=== PATIENT | female | born 1955 | race Caucasian/White ===

== ENCOUNTER → 2017-10-19 | Outpatient (CLI) | payer BC ==
[~2017-10-19] MED LIST: ASPI-1471 PO; ATOR20TA22 PO; CALC500T6 PO; CYAN100017 PO; GARL1TAB9 PO; GLUC1TAB13 PO; GOLYTE PO; LACT1CAP6 PO; LACTAID3000 UNI1 PO; MAGN500C10 PO; MULT-1085 PO; OMEG500C7 PO; RANI-366 PO; UBID100C9 PO
--- NOTE | 2017-10-19 16:33 | RADIOLOGY IMAGING REPORT ---
FACILITY: [facility] - [place] PATIENT NAME: CONNER SWEENEY : [id number] MR: [id number] V: [id number] EXAM DATE: [id number] ORDERING PHYSICIAN: SUNIL APONTE TECHNOLOGIST: Magdalena Tolliver PROCEDURE:BILATERAL DIGITAL SCREENING MAMMOGRAM WITH CAD ASSISTED INTERPRETATION & 3D TOMOSYNTHESIS COMPARISON:Prior mammograms 10/15/16, 10/14/15, 08/28/14, 08/24/13, 08/25/12, 08/27/11. INDICATIONS:SCREENING FINDINGS: Moderately dense fibroglandular tissue is seen throughout the breasts. The parenchymal pattern has remained stable allowing for difference in mammographic technique & patient positioning. There is no evidence of malignant appearing mass, malignant appearing calcifications or other secondary sign of malignancy in either breast. DIAGNOSTIC CATEGORY 1--NEGATIVE. RECOMMENDATIONS: ROUTINE MAMMOGRAM AND CLINICAL EVALUATION. IMPRESSION: BIRADS 1: Negative. No significant abnormality is seen. Dictated by: Jennifer Ortiz M.D. on 10/19/2017 at 11:20 Transcribed by: REMY on 10/19/2017 at 11:33 Approved by: Jennifer Ortiz M.D. on 10/19/2017 at 16:32 [facility]
== END ==
LOC: MAMO 01:58
PROVIDERS: ATTEND Family Medicine
DX: Z12.31 Encounter for screening mammogram for malignant neoplasm of breast (principal)
CPT/HCPCS: 77063; 77067

== ENCOUNTER → 2018-09-15 | Outpatient (CLI) | payer BC ==
[~2018-09-15] MED LIST changes: -RANI-366 PO; +RANI-54 PO
--- NOTE | 2018-09-15 09:52 | EKG ---
FACILITY: [facility] [place] PATIENT NAME: CONNER SWEENEY : [id number] MR: [id number] V: [id number] EXAM DATE: ORDERING PHYSICIAN: SUNIL APONTE TECHNOLOGIST: JEREMÍAS Test Reason : TACHYCARDIA Blood Pressure : / mmHG Vent. Rate : 085 BPM Atrial Rate : 085 BPM P-R Int : 126 ms QRS Dur : 078 ms QT Int : 368 ms P-R-T Axes : 038 048 043 degrees QTc Int : 437 ms Appears to be sinus rhythm with competing ectopic atrial focus - two different P wave morphologies No acute appearing ST-T findings Borderline ECG No previous ECGs available Confirmed by SEA ARAUJO ([id number] on 09/15/2018 8:03:35 PM Referred By: Confirmed By:SEA ARAUJO
== END ==
LOC: CARD 09:21
PROVIDERS: ATTEND Family Medicine
DX: R94.31 Abnormal electrocardiogram [ECG] [EKG] (principal)
CPT/HCPCS: 93005

== ENCOUNTER → 2018-11-03 | Outpatient (CLI) | payer BC ==
--- NOTE | 2018-11-04 11:11 | RADIOLOGY IMAGING REPORT ---
FACILITY: [facility] - [place] PATIENT NAME: CONNER SWEENEY : [id number] MR: [id number] V: [id number] EXAM DATE: [id number] ORDERING PHYSICIAN: SUNIL APONTE TECHNOLOGIST: Magdalena Tolliver PROCEDURE: BILATERAL DIGITAL SCREENING MAMMOGRAM WITH CAD ASSISTED INTERPRETATION & 3D TOMOSYNTHESIS REASON FOR STUDY: Screening. FAMILY HISTORY OF BREAST CANCER: Paternal grandmother at age 81. BREAST PROCEDURES/TREATMENTS: Bilateral breast reduction in 2010. COMPARISON: 10/19/17, 10/15/16, 10/14/15, 08/28/14, 08/24/13, 08/25/12. VIEWS OBTAINED: Bilateral 2D & 3D full field CC & MLO projections. BREAST DENSITY: The breasts are heterogeneously dense which can obscure small masses. MAMMOGRAM FINDINGS: The parenchymal pattern has remained stable allowing for difference in mammographic technique & patient positioning. IMPRESSION: BIRADS 1: Negative. DIAGNOSTIC CATEGORY 1--NEGATIVE. RECOMMENDATIONS: ROUTINE MAMMOGRAM AND CLINICAL EVALUATION. Dictated by: Jennifer Ortiz M.D. on 11/03/2018 at 9:28 Transcribed by: REMY on 11/04/2018 at 10:47 Approved by: Jennifer Ortiz M.D. on 11/04/2018 at 11:06 [facility]
== END ==
LOC: MAMO 02:01
PROVIDERS: ATTEND Family Medicine
DX: Z12.31 Encounter for screening mammogram for malignant neoplasm of breast (principal)
CPT/HCPCS: 77063; 77067